=== PATIENT | female | born 1980 | race Caucasian/White ===

== ENCOUNTER 2018-05-07 13:13 | Emergency (ER) | payer MEDICAID ==
[2018-05-07 13:54] LABS: PLATELET COUNT 226 10^3/uL (150-400)
--- NOTE | 2018-05-07 14:21 | EDPHY ---
General - History Smoking Status: Never smoked Time Seen by Provider: 05/07/18 14:08 Narrative: CHIEF COMPLAINT: Palpitations, chest pain HISTORY OF PRESENT ILLNESS: Patient presents with complaints of palpitations and chest pressure. This started yesterday afternoon and evening. This was after increasing her you know thyroid dose to 37.5 mg yesterday morning. She has felt intermittent palpitations, some chest pressure. Symptoms are [id number]. They are persistent but wax and wane. Worse with inspiration. No worse with ambulation. She has no cough fever. No extremity pain, swelling or redness. No previous., rhonchi. No recent trauma or surgery. No other associated complaints or modifying factors. REVIEW OF SYSTEMS: 10 systems were reviewed and negative with the exception of the elements mentioned in the history of present illness. PCP: Dr. Coates SPECIALISTS: Pending function medicine follow-up PAST MEDICAL HISTORY: Hypothyroid PAST SURGICAL HISTORY: No recent surgical history SOCIAL HISTORY: Never smoker. Moved to [place] 2 months ago from [place]. Works as a massage therapist FAMILY HISTORY: Noncontributory EXAMINATION: General Appearance: Alert, no distress Head: normocephalic, atraumatic Eyes: Pupils equal and round, no conjunctival pallor or injection ENT, Mouth: Mucous membranes moist Neck: Normal inspection, supple, non-tender Respiratory: Lungs are clear to auscultation Cardiovascular: Regular rate and rhythm. No murmur. Good the hands of perfusion Gastrointestinal: Abdomen is soft and nontender Back: non-tender, no bony abnormalities Neurological: A&O, nonfocal, normal gait. Strength symmetric. Skin: Warm and dry, no rash Extremities: Nontender, no pedal edema Psychiatric: Mood and affect normal DIFFERENTIAL DIAGNOSES: Including but not limited to thyroid dysfunction, sinus dysrhythmia, PE, palpitations, PVCs, SVT, dehydration, electrolyte disturbance MDM: 2:20 p.m. Palpitations chest discomfort/pressure over the past 36+ hours. She has no exertional pain. No significant shortness of breath. No unilateral swelling, erythema or edema. No tachycardia. No hemoptysis. No hypoxemia. No surgery in the past 4 weeks. No estrogen use. No previous DVT or PE. She feels this is related to her thyroid medication manipulation, and this would clinically make sense. Troponin was ordered prior to my examination and is within normal limits. I have added chest x-ray and thyroid studies. I will discuss with Dr. Machado. 3:30 p.m. Thyroid studies are within normal limits. chest x-ray unremarkable. I have re- evaluated the patient. 4:05 p.m. Palpitations without any exertional chest pain. She has a negative troponin which is sensitive as the symptoms have been present greater than 12 hr. She has no exertional pain. She does not have any criteria that would suggest PE as she is perc negative. We discussed that this is likely related to the medication as she presumes. We discussed returning to her primary care physician to discuss medication reconciliation. I discussed ED precautions for any exertional pain, shortness of breath, diaphoresis, increasing heart rate. She is comfortable this plan and discharged home stable condition. EKG interpretation: Dr. Paris Machado Sinus dysrhythmia. No ischemia SUPERVISION: Patient was independently examined, but I discussed the case with my secondary supervising physician Dr. Machado. CONSULTATION: None (Ghulam Tracey) Discussion: The patient was evaluated and managed by the Physician Hair And Makeup Designer. I discussed the patient's presentation and course with the physician registered nurse first assistant and agree with the evaluation. My co-signature indicates that I have reviewed this chart and I agree with the findings and plan of care as documented. I am the secondary supervising physician. (Paris Machado) - Objective Vital Signs: Initial Vital Signs Temperature (C) 36.4 C 05/07/18 13:23 Heart Rate 80 05/07/18 13:23 Respiratory Rate 16 05/07/18 13:23 Blood Pressure 109/84 H 05/07/18 13:23 O2 Sat (%) 97 05/07/18 13:23 O2 Delivery Mode Room Air Allergies/Adverse Reactions: acetaminophen [From Percocet] Allergy (Verified 05/07/18 13:22) gluten Allergy (Verified 05/07/18 13:22) iodine Allergy (Verified 05/07/18 13:22) oxycodone [From Percocet] Allergy (Verified 05/07/18 13:22) Penicillins Allergy (Verified 05/07/18 13:22) Home Medications: Medication Instructions Recorded Unithroid 05/07/18 Laboratory Results: Laboratory Results 05/07/18 13:40 05/07/18 13:40 Point of Care Test Results: Chemistry 05/07/18 13:44 POC Troponin I 0.00 ng/mL ng/mL (0.00-0.08) Departure - Departure Disposition: Home, Routine, Self-Care Clinical Impression: Heart palpitations, Chest pain Condition: Good Instructions: Thyroid Supplement (By mouth), Heart Palpitations (ED) Additional Instructions: 1. Contact your primary care physician for outpatient follow-up 2. Return to emergency department for exertional chest pain, shortness of breath , lightheadedness or near loss of consciousness 3. Contact machine adjuster leader case trim at [phone] if you have difficulty obtaining appointments Referrals: Sepideh Barrett PA [Physician Hair And Makeup Designer] - As per Instructions Perez Bain MD [Medical Doctor] - As per Instructions Anyi Rogers MD [Medical Doctor] - As per Instructions
--- NOTE | 2018-05-07 15:13 | CPEKG ---
Test Reason : OPEN Blood Pressure : / mmHG Vent. Rate : 066 BPM Atrial Rate : 069 BPM P-R Int : 172 ms QRS Dur : 081 ms QT Int : 403 ms P-R-T Axes : 024 055 041 degrees QTc Int : 423 ms Sinus arrhythmia Confirmed by Annie Be ([id number]) on 05/07/2018 3:12:33 PM Referred By: Confirmed By:Annie Be
[2018-05-07 15:55] VITALS: BP 115/75
== END 2018-05-07 15:55 | disposition home or self-care (01) ==
DX: R00.2 Palpitations (principal); R07.9 Chest pain, unspecified
CPT/HCPCS: 84481-90; 84484-PO